=== PATIENT | female | born 1965 | race Two or more races ===

== ENCOUNTER 2021-10-07 00:21 | Emergency (ER) | payer OTHER ==
[~2021-10-07] VITALS: Ht 165.1 cm; Wt 68.0 kg
[2021-10-07 03:08] VITALS: BP 118/88
== END 2021-10-07 03:12 | disposition home or self-care (01) ==
LOC: ER 00:21
DX: R25.3 Fasciculation (principal); Z88.0 Allergy status to penicillin
CPT/HCPCS: 99283